=== PATIENT | female | born 1950 ===

== ENCOUNTER 2024-08-19 07:40 | Outpatient (CLI) | payer MEDICARE, SELFPAY ==
--- NOTE | ~2024-08-19 | MR_ITS ---
EXAMINATION: MR foot LT wo con DATE: 08/19/2024 08:28 INDICATION: Left ankle pain and swelling. TECHNIQUE: Magnetic resonance imaging (MRI) of the left foot was performed without intravenous contra st. COMPARISON: None. FINDINGS: Medial ankle ligaments: The superficial and deep components of the deltoid ligament are normal. Lateral ankle ligaments: The anterior and posterior talofibular ligaments, calcaneofibular ligament, and anterior and posterio r tibiofibular ligaments are normal. Tendons: The medial and anterior ankle tendons are normal. The peroneal tendons are normal. There is mild Achi lles tendinopathy. Plantar fascia: Normal. Bones/other: Alignment is normal. No fracture. There is severe osteoarthritis of talonavicular joint and mild oste oarthritis of ankle joint and some of the other midfoot joints. There is moderate osteoarthritis of c alcaneocuboid joint. There is a skin marker at the medial aspect of the ankle. Fluid: There are small ankle and subtalar joint effusions. IMPRESSION: 1. 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 Reviewed, dictated and finalized at location A. MANAGEMENT
== END 2024-08-19 07:41 | disposition home or self-care (01) ==
PROVIDERS: PCP Student in an Organized Health Care Education/Training Program; Visit Provider Student in an Organized Health Care Education/Training Program
DX: M19.072 Primary osteoarthritis, left ankle and foot (principal)
CPT/HCPCS: 73718

== ENCOUNTER 2024-11-05 10:03 | Emergency (ER) | payer MEDICARE, SELFPAY ==
--- OUTSIDE RECORDS SUMMARY | 2024-11-05 10:06 | XMS_ITS | Clinical Summary ---
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 Fish-Derived Products Other (see comment) Medium 11/08 Reaction: vomitng, Reaction: vomitng, Medications albuterol sulfate HFA 108 (90 Base) MCG/ACT inhalerIndication s:Mild intermittent asthma without complication ([facility]),Screeni ng for lipid disorders,Screeni ng for endocrine, metabolic and immunity disorder,Annual physical exam TAKE 2 PUFFS BY MOUTH EVERY 6 HOURS NEEDED FOR WHEEZE OR SHORTNESS OF BREATH 18 g 1 4 Active Active Problems Problem Noted Date Diagnosed Date Regurgitation of food 02/22/2023 Overview (02/22/2023): Added automatically from request for surgery [id number] Dysphagia, cricopharyngeal 02/22/2023 Overview (02/22/2023): Added automatically from request for surgery [id number] Scoliosis 02/03/2017 Overview (10/28/2022): Scoliosis, unspecified scoliosis type, unspecified spinal region Scoliosis, unspecified scoliosis type, unspecified spinal region Hyperlipidemia 09/05/2014 Overview (10/28/2022): Hyperlipidemia Last Assessment & Plan: Stable. Ordering repeat lipid panel Encounters Date Type Department Care Team Description 08/30/2024 Telephone [facility] [address] [phone] Garry Stone, DO Referral 08/22/2024 Telephone [facility] [address] [phone] Garry Stone, DO Radiology Results 08/19/2024 Scan HEALTH INFO SRVCS Scanned, [facility] MRI (SCAN) from Last 3 Months Immunizations Name Administration Dates Next Due Fluzone High Dose - >Age 65 (Prefilled Syringe) 07/30/2022,07/19/2020 [facility]ER[facility] COVID-19 BIVALENT (6-11), MRNA, LNP-S, P F 08/07/2021 MODERNA 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), MRNA, LNP-S, PF, 50 MCG/ 0.25 ML DOSE 11/09/2020,12/08/2019 Tdap (Generic) 09/20/2006 Family History Medical History Relation Comments Heart Disease Father Cancer Mother Relation Status Comments Father Mother Social History Tobacco Use Types Packs/Day Years Used Date Smoking Tobacco: Never Smokeless Tobacco: Never Tobacco Cessation:Counseling Given: Not Answered Alcohol Use Standard Drinks/Week Comments Never 0 (1 standard drink = 0.6 oz pur e alcohol) PHQ-2 Answer Date Recorded Patient Health Questionnaire-2 Score 0 07/21/2024 Comments No Sex and Gender Information Value Date Recorded Sex Assigned at Not on file Legal Sex Female 10:15 AM CDT Gender Identity Not on file Sexual Orientation Not on file Last Filed Vital Signs Vital Sign Reading Time Taken Comments Blood Pressure 128/82 07/21/2024 7:18 AM CDT Pulse 78 07/21/2024 7:18 AM CDT Temperature 36.3 C (97.4 F) 07/21/2024 7:18 AM CDT Respiratory Rate 16 07/21/2024 7:18 AM CDT Oxygen Saturation 98% 07/21/2024 7:18 AM CDT Inhaled Oxygen Concentration - - Weight 46 kg (101 lb 6.4 oz) 07/21/2024 7:18 AM CDT Height 154.9 cm (5' 1 ) 07/21/2024 7:18 AM CDT Body Mass Index 19.16 07/21/2024 7:18 AM CDT Plan of Treatment Health Maintenance Due Date Last Done Comments Colorectal Cancer Screening Colonoscopy (10 Years) 1950 Pneumococcal Vaccine: 65+ Years (1 of 2 - PCV) 02/11/1956 Annual Medicare Wellness Visit 02/11/2017 Mammogram Screening 01/01/2023 01/01/2021, 4 PHQ-2 (Physician [place]) 09/20/2024 07/21/2024 COVID-19 Vaccine ( season) 2025 07/30/2022, 08/07/2021, 11/09/2020, Additional history exists Postponed from 05/21/2024 (Patient Refused) DTaP, Tdap and Td Vaccines (2 - Td or Tdap) 07/21/2025 09/20/2006 Postponed from 09/20/2016 (Patient Refused) Dexa Scan (General) 07/21/2025 01/01/2021, 1 Postponed from 01/01/2023 (Patient Refused) Influenza Adult (#1) 2025 07/30/2022, 07/19/20 20 Postponed from 06/20/2024 (Patient Refused) PHQ-2 (Physician [place]) 07/21/2025 07/21/2024 RSV Immunization or 60+ Years (1 - Risk 60-74 years 1-dose series) 07/21/2025 Postponed fro m 2012 (Patient Refused) Zoster Vaccines (1 of 2) 07/21/2025 Pos tponed from 02/11/2002 (Patient Refused) Hepatitis C Completed 10/28/2022 Meningococcal B Vaccine Aged Out No l onger eligible based on patient's age to complete this topic Meningococcal Vaccine Aged Out No sara azucena eligible based on patient's age to complete this topic RSV Immunizations Under 20 Months Aged Out No longer eligible based on patient's age to complete this topic Procedures Procedure Name Priority Date/Time Associated Diagnosis Comments MRI GENERIC 08/19/2024 HEPATITIS C ANTIBODY Routine 10/28/2022 1:02 PM [facility] Screening for lipid disorders Screening for endocrine, metabolic and immunity disorder Need for hepatitis C screening test Annual physical exam from Last 3 Months or Most Recently Relevant to Health Maintenance Results * MRI GENERIC (08/19/2024) Anatomical Region Laterality Modality Other 08/19/2024 [facility] Scanned SCANNING Final Resu lt * HEPATITIS C ANTIBODY (10/28/2022 1:02 PM [facility]) HEPATITIS C AB NON-REACTI VE NON-REACT CHLOE 10/28/2022 6:17 PM CHEF DE PARTIE [facility] Comment: ANTIBODIES TO HCV NOT DETECTED. DOES NOT EXCLUDE THE POSSIBILITY OF EXPOSURE TO HCV. 10/28/2022 1:02 PM CHEF DE PARTIE Garry Stone DO LABORATORY Final Re sult [facility] [address] [place] [address], [id number] from Last 3 Months or Most Recently Relevant to Health Maintenance Insurance [employer] Care Teams Single Stroke Preformer Relationship Specialty Start Date End Date Garry Stone DO [facility] [place] [address] PCP - General FAMILY PRACTICE 10/28/22
--- OUTSIDE RECORDS SUMMARY | 2024-11-05 10:06 | XMS_ITS | Continuity of Care Document ---
Author Organization [facility] Address [address] [place] [id number] Phone Care Team Providers Care Field Sales Specialist Name Role Phone Haroon Cotton Unavailable Unavailable Allergies, Adverse Reactions, Alerts Substance Reaction Status Criticality BEE STING KIT Active No Information Medications Medication Instructions Dosage Effective Dates (start - stop) Status Comments amoxicillin 875 mg tablet take 1 tablet by oral route every 12 hours 875 MG - Active Procedures Procedure Date OFFICE/OUTPATIENT VISIT, [facility] Advance Directives Directive Yes / No Effective Date File Name No Information Encounters Encounter Description Practice Location Reason(s) For Visit Diagnoses Date Provider Providers Copied on Encounter [facility], [address] [place] [address], [facility], tel:[phone] *[facility] No Information Yury Martinezeem. [address] [place] [address], [facility], . tel:[phone] OFFICE/OUTPAT IENT VISIT, [facility], [address] [place] [address], [address] [place] [address] tel:[phone] *[facility] Ear irrigation (chief complaint) Body mass index (BMI) 21.0-21.9, adultAcute suppurative otitis media of both ears without spontaneous rupture of tympanic membranes, recurrence not specified Alvin Romero. [address] [place], [place], [facility], . tel:[phone] Family History Family Member Type Diagnosis Age At Onset Father Problem (finding) hypertension Payers Payer name Insurance type Covered constitution party ID Authoriza tion(s) No Information Social History Type Description Quantity Date Captured Comments Sex Female Smoking Status No Information Chief Complaint And Reason For Visit No Information Reason For Referral Reason For Referral No Information Plan Of Treatment Date Type Action Status Goal Dietary management education , guidance, and counseling completed History Of Present Illness Encounter Date Complaint History Of Prese nt Illness Ear irrigation The symptoms beg an 1 month ago and generally lasts 1 Month. The symptoms are reported as being severe. The symptoms occur constantly. Pt has wax build up in her ears. Pt does use ear candles to clean ears with. Functional Status Date Functional Assessmen t No Information Instructions Date Instruction Additional Infor mation amoxicillin, follow up after treatment Related to Acute suppurative otitis media of both ears without spontaneous rupture of tympanic membranes, recurrence not specified Dietary management e ducation, guidance, and counseling Related to Body mass index (BMI) 21.0-21.9, adult Assessments Type Assessment Date No Information Patient Care Teams Name Effective Dates (start - stop) Status Members No Information
--- OUTSIDE RECORDS SUMMARY | 2024-11-05 10:06 | XMS_ITS | Referral Summary ---
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 Medications EPINEPHrine (EPIPEN) 0.3 mg/0.3 mL injection syringeIndicati ons:Anaphylaxis Inject 0.3 mL (0.3 mg total) into the shoulder, thigh, or buttocks as needed for anaphylaxis. 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
--- OUTSIDE RECORDS SUMMARY | 2024-11-05 10:06 | XMS_ITS | Clinical Summary ---
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 Medications albuterol sulfate 90 mcg/Actuation inhaler Take 2 Puffs by inhalation every 6 hours as needed for Shortness of Breath. 8.5 Gram 1 2 Active Active Problems Problem Noted Date Diagnosed Date Hyperlipidemia 08/22/2019 Assessment & Plan (12/16/2020 12:40 PM CDT): Edith. Ordering repeat lipid panel Assessment & Plan (07/19/2020 10:19 AM CDT): Edith. ASCVD score 4.5% (low) - recommend healthy diet and exercise. 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 Written Script for Epi pen Scoliosis 02/03/2017 Overview (07/19/2020): Scoliosis, unspecified scoliosis type, unspecified spinal region Immunizations Immunization Administration Dates Next Due (ADACEL/BOOSTRIX)(10 YR UP) TDAP VACCINE, 0.5ML, IM 09/20/2006 INFLUENZA VACCINE HIGH DOSE QUADRIVALENT 65 YR U P PF IM 07/19/2020 Family History Medical History Relation Name Comments Heart Disease Father Alfred Oden Cancer Maternal Grandmother Ayla Lanier Cancer Mother Aura Oden cervical cancer Heart Disease Paternal Grandfather jayden Oden Heart attack and passed Relation Name Status Comments Father Alfred Oden Maternal Grandfather Maternal Grandmother Ayla Lanier Mother Aura Oden Alive Paternal Grandfather jayden Oden Paternal Grandmother Social History Tobacco Use Types Packs/Day Years Used Date Smoking Tobacco: Never Smokeless Tobacco: Never Alcohol Use Standard Drinks/Week Comments Never 0 (1 standard drink = 0.6 oz pur e alcohol) Financial Resource Strain Answer Date R ecorded How hard is it for you to pa y for the very basics like food, housing, medical care, and heating? Not hard at all 10/29/2020 Food Insecurity Answer Date Recorded In the past 12 months, have you worried that your food would run out before you had money to buy more? Never true 12/15/2020 In the past 12 months, did y ou run out of food and didn't have money to buy more? Never true 12/15/2020 Transportation Needs Answer Date Record ed In the past 12 months, has l ack of transportation kept you from medical appointments or from getting medications? 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 Gender Identity Not on file Sexual Orientation Not on file Last Filed Vital Signs Vital Sign Reading Time Taken Comments Blood Pressure 122/60 12/16/2020 9:41 AM CDT Pulse 67 12/16/2020 9:41 AM CDT Temperature 36.3 C (97.4 F) 07/19/2020 9:58 AM CDT Respiratory Rate 20 02/28/2020 1:40 PM CDT Oxygen Saturation 99% 12/16/2020 9:41 AM CDT Inhaled Oxygen Concentration - - Weight 49.9 kg (110 lb) 12/16/2020 9:41 AM CDT Height 157.5 cm (5' 2 ) 12/16/2020 9:41 AM CDT Body Mass Index 20.12 12/16/2020 9:41 AM CDT Plan of Treatment Health Maintenance Due Date Last Done Comments COLORECTAL SCREENING 02/11/1997 FIT/FOBT Q 1 year 02/11/1997 Flex Sig/CT Colonography Q 5 years 02/11/1997 PNEUMOCOCCAL VACCINE 65+ YEA RS (1 of 1 - PCV) 02/11/2002 ZOSTER VACCINE (1 of 2) 02/11/2002 DTAP/TDAP/TD VACCINES (2 - Td or Tdap) 09/20/2016 BREAST CANCER SCREENING 01/01/2022 01/01/2021, 08/30 Colorectal Cancer Screening 10/04/2022 FIT-DNA Q 3 years 10/04/2022 10/04/2019 INFLUENZA VACCINE (#1) 2024 07/30/2022, 2019 RSV VACCINE (60+ or ) (1 - 1-dose 75+ series) 02/11/2027 OSTEOPOROSIS SCREENING Completed 01/01/2021 Medical Devices Implanted Type Area Electronic Engineering Draftsperson Device Identifier Shelf Expiration Date Model / Serial / Lot Hazard Mitigation Officer Endoclip Iii 5mm W/Cliplogic [id number] - [id number] Implanted:Qty: 1 on 02/28/2020 by Carol Cabrera DO at [facility] N/A: Abdomen [employer] - COVIDIEN 09/19/2022 [id number] / / [id number] Procedures Procedure Name Priority Date/Time Associated Diagnosis Comments MAMMO 3D KAYLA SCREEN BILAT W OR WO CAD Routine 01/01/2021 2:28 PM CDT Screening mammogram, encounter for XR DEXA BONE DENSITY AXIAL 1 OR MORE SITES Routine 01/01/2021 2:19 PM CDT Screening for osteoporosis Post-menopausal COLON CANCER SCREEN, STOOL DNA Routine 10/04/2019 3:24 PM WASTE COTTON CLEANER Screening for colon cancer from Last 3 Months or Most Recently Relevant to Health Maintenance Results * MAMMO SCRN BILAT 3D KAYLA W OR WO CAD (01/01/2021 2:28 PM CDT) Anatomical Region Laterality Modality Breast Bilateral Mammography 01/01/2021 2:28 PM CDT Addenda Addendum by April Guerrero DO on 01/02/2021 3:54 PM CDT ADDENDUM: The patient's prior mammogram performed on 08/30/2014 has been received and reviewed. FINDINGS: The parenchymal pattern of the breasts is unchanged from the previous studies with no concerning developing dominant masses, microcalcifications or focal areas of architectural distortion. IMPRESSION: 1. No concerning developing abnormality identified. OVERALL FINAL ASSESSMENT: BI-RADS CATEGORY 1 - Negative RECOMMENDATIONS: 1. Recommend annual mammography. [facility] 01/01/2021 3:21 PM CDT IMPRESSION: This study is incomplete. Outside films are needed to assess stability of the parenchymal pattern. Once received, an addendum to this report will be made. OVERALL FINAL ASSESSMENT: BI-RADS CATEGORY 0 - Incomplete: Needs prior mammograms for comparison. DICTATION LOCATION: [facility] Narrative 01/01/2021 3:21 PM CDT BILATERAL SCREENING DIGITAL MAMMOGRAM WITH 3D TOMOSYNTHESIS AND CAD DATE: 01/01/2021 2:28 PM HISTORY: Routine screening. The patient indicates receiving her second Covid 19 vaccination in the left arm on 12/07/2020. TECHNIQUE: Full-field digital craniocaudal and mediolateral oblique projections of both breasts were obtained. Low-dose full-field digital breast tomosynthesis examination was performed with 2D and 3D acquisitions. Examination is read in conjunction with computer aided detection. COMPARISON: None currently available. The patient indicates her prior films were obtained at [facility]. She is identified with these form for retrieval of these images. BREAST COMPOSITION: Scattered fibroglandular densities. FINDINGS: This study is incomplete due to lack of prior films for comparison. Prior films have been requested and once received, an addendum will be made to this report. CAD is utilized. Procedure Note April Guerrero DO - 01/01/2021 BILATERAL SCREENING DIGITAL MAMMOGRAM WITH 3D TOMOSYNTHESIS AND CAD DATE: 01/01/2021 2:28 PM HISTORY: Routine screening. The patient indicates receiving her second Covid 19 vaccination in the left arm on 12/07/2020. TECHNIQUE: Full-field digital craniocaudal and mediolateral oblique projections of both breasts were obtained. Low-dose full-field digital breast tomosynthesis examination was performed with 2D and 3D acquisitions. Examination is read in conjunction with computer aided detection. COMPARISON: None currently available. The patient indicates her prior films were obtained at [facility]. She is identified with these form for retrieval of these images. BREAST COMPOSITION: Scattered fibroglandular densities. FINDINGS: This study is incomplete due to lack of prior films for comparison. Prior films have been requested and once received, an addendum will be made to this report. CAD is utilized. IMPRESSION: This study is incomplete. Outside films are needed to assess stability of the parenchymal pattern. Once received, an addendum to this report will be made. OVERALL FINAL ASSESSMENT: BI-RADS CATEGORY 0 - Incomplete: Needs prior mammograms for comparison. DICTATION LOCATION: [facility] us Pati Roasles MD MAMMO ORDERABLES Edited Result - Final * XR DEXA BONE DENSITY AXIAL 1 OR MORE SITES (01/01/2021 2:19 PM CDT) Anatomical Region Laterality Modality Computed Radiogr aphy 01/01/2021 2:1 9 PM CDT Narrative 01/01/2021 2:32 PM CDT XR DEXA BONE DENSITY AXIAL 1 OR MORE SITES DATE: 01/01/2021 2:19 PM HISTORY: 70 years old Female with post menopausal symptoms. PROCEDURE: Planar images of the lumbar spine and hip(s) using a [employer] DEXA scanner for bone mineral density determination (BMD). FINDINGS: Lumbar Spine (L1-L4) 0.753 gm/cm2, T-score: -3.6 Left femoral neck 0.642 gm/cm2, T-score: -2.8 Right femoral neck 0.636 gm/cm2, T-score: -2.9 Comments: None IMPRESSION Osteoporotic bone mineral density. DEFINITIONS: Normal: T-score above -1.0 Osteopenia T-score less than -1.0 and above -2.5 Osteoporosis: T-score < -2.5 FRAX FRACTURE RISK ASSESSMENT: Risk factors: History of fracture. 10 Year Probability Of Fracture -Major Osteoporotic: 24.0% -Hip: 7.7% -Comparison population: [place], A major osteoporotic fracture is defined as a fracture of the spine, forearm, hip or shoulder. FOLLOW-UP RECOMMENDATIONS: Patients without high risk factors for osteoporosis: T-score -1.0 to -1.5 - Consider repeat BMD in 5-10 years T-score -1.5 to -2.0 - Consider repeat BMD in 3-5 years T-score -2.0 to - 2.5 - Consider repeat BMD every 2 years Patients on treatment for osteoporosis: 1-2 years after initiation of treatment and every 2 years [address] Yuan Powell DO DICTATION LOCATION: Location 1 - [facility] Procedure Note Yuan Powell DO - 01/01/2021 XR DEXA BONE DENSITY AXIAL 1 OR MORE SITES DATE: 01/01/2021 2:19 PM HISTORY: 70 years old Female with post menopausal symptoms. PROCEDURE: Planar images of the lumbar spine and hip(s) using a [employer] DEXA scanner for bone mineral density determination (BMD). FINDINGS: Lumbar Spine (L1-L4) 0.753 gm/cm2, T-score: -3.6 Left femoral neck 0.642 gm/cm2, T-score: -2.8 Right femoral neck 0.636 gm/cm2, T-score: -2.9 Comments: None IMPRESSION Osteoporotic bone mineral density. DEFINITIONS: Normal: T-score above -1.0 Osteopenia T-score less than -1.0 and above -2.5 Osteoporosis: T-score < -2.5 FRAX FRACTURE RISK ASSESSMENT: Risk factors: History of fracture. 10 Year Probability Of Fracture -Major Osteoporotic: 24.0% -Hip: 7.7% -Comparison population: [place], A major osteoporotic fracture is defined as a fracture of the spine, forearm, hip or shoulder. FOLLOW-UP RECOMMENDATIONS: Patients without high risk factors for osteoporosis: T-score -1.0 to -1.5 - Consider repeat BMD in 5-10 years T-score -1.5 to -2.0 - Consider repeat BMD in 3-5 years T-score -2.0 to - 2.5 - Consider repeat BMD every 2 years Patients on treatment for osteoporosis: 1-2 years after initiation of treatment and every 2 years thereafter [address] Yuna Powell DO DICTATION LOCATION: Location 1 - [facility] Pati Rosales MD DIAGNOSTIC IMAGING ORDERABLES Final Result * COLON CANCER SCREEN, STOOL DNA (10/04/2019 3:24 PM WASTE COTTON CLEANER) COLOGUARD RESULT Negative Not Applicable [facility] Comment: A negative result indicates a low likelihood that a colorectal cancer (CRC) or an advanced adenoma (adenomatous polyps with more advanced pre-malignant features) is present. The chance that a person with a negative Cologuard test has a colorectal cancer is less than 1 in 1500 (negative predictive value >99.9%) or has an advanced adenoma is less than 5.3% (negative predictive value 94.7%). These data are based on a prospective cross-sectional screening study of 10,000 individuals at average risk for colorectal cancer who were screened with both Cologuard and colonoscopy. (Anibal Diaz. et al, N Engl J Med 2014;370(14):9231-7450) COLOGUARD RE-SCREENING RECOMMENDATION: Periodic routine colorectal cancer screening is an important part of preventive healthcare for asymptomatic persons at average risk for colorectal cancer. Following a negative Cologuard result, the [place] Cancer Society and U.S. Multi-Society Task Force screening guidelines recommend a Cologuard re-screening interval of 3 years. References: [place] Cancer Society (ACS). Colorectal cancer prevention and early detection. [place], [place]: [place] Cancer Society; [updated 2015Jan 11]. https://www.cancer.org/cancer/jvdyo-kqkicy-ddrwud/eqhwkhbuo-gwdpbicfv-vpdnhov/ac s-rec ommendations.html. Accessed May 20, 2018; Pan JONES, Ashley ARDON, Abi CORTEZ, Colorectal Cancer Screening: Recommendations for Physicians and Patients from the U.S. Multi-Society Task Force on Colorectal Cancer Screening, Am J Gastroenterology 2017; 112:0794-1581. Test Type: Composite algorithmic analysis of stool DNA-biomarkers with hemoglobin immunoassay. Quantitative values of individual biomarkers are not reportable and are not associated with individual biomarker result reference ranges. Precautions and Limitations: Cologuard is intended for colorectal cancer screening of adults of either sex, 50 years or older, who are at typical average-risk for colorectal cancer. A negative Cologuard test result does not guarantee the absence of colorectal cancer or advanced adenoma (pre-cancer). Patients with a negative Cologuard test result should be advised to continue participating in a colorectal cancer screening program. Cologuard may produce a positive result, even though a colonoscopy may not find colorectal cancer or precancerous polyps. The performance of Cologuard has been established in a cross sectional study (i.e., single point in time). Performance has not been evaluated in adults who have been previously tested with Cologuard or in patients less than 50 years of age. Cologuard has been approved for use by the U.S. FDA. Cologuard performance data in a 10,000 patient pivotal study using colonoscopy as the reference method can be accessed at the following location: www.[employer]/results. Additional description of the Cologuard test process, warnings and precautions can be found at www.cologuardtest.com. Rx Only. Stool STOOL SPECIMEN / Unknown 10/04/2019 3:24 PM WASTE COTTON CLEANER 10/05/2019 2:24 PM WASTE COTTON CLEANER us Jon Terrell MD BODY FLUIDS AND STOOLS Final R esult [employer] [facility] # [id number] [facility] [address] [facility], [address] [place] [address] from Last 3 Months or Most Recently Relevant to Health Maintenance Insurance MEDICARE PART A AND B BCBS SUPP Advance Directives For more information, please contact: [phone] * Full Code (Latest Code Status on File) Date Activated Date Inactivated Comments 02/28/2020 8:55 AM 02/28/2020 5:09 PM * Full Code Date Activated Date Inactivated Comments 02/28/2020 8:04 AM 02/28/2020 8:55 AM * Full Code Date Activated Date Inactivated Comments 02/07/2020 9:15 AM 02/07/2020 2:27 PM
--- OUTSIDE RECORDS SUMMARY | 2024-11-05 10:06 | XMS_ITS | Clinical Summary ---
Author Organization [facility] Address [address] [place] [address] Care Team Providers Care Rustic Fence Builder Name Role Phone Unavailable Primary Care Provider [...] Immunization Administration Dates Next Due Tdap 09/20/2006 Surgical History Surgery Date Site/Laterality Comments OTHER SURGICAL HISTORY right arm fx repair TUBAL LIGATION Bilateral tubal ligation OTHER SURGICAL HISTORY abdominal scar tissue removed Family History Medical History Relation Name Comments Coronary artery disease Father Robbi nary artery disease; Esophageal cancer Father Cancer, es ophageal; Cause of : Cancer, esophageal Heart attack Father Myocardial infa rction; Tuberculosis Maternal Grandfather Tubercu losis; Glaucoma Mother Glaucoma; Uterine cancer Mother Cancer, uteri ne; Relation Name Status Comments Father Maternal Grandfather Mother Social History Tobacco Use Types Packs/Day Years Used Date Smoking Tobacco: Never Alcohol Use Standard Drinks/Week Comments No 0 (1 standard drink = 0.6 oz pur e alcohol) Comments No Sex and Gender Information Value Date Recorded Sex Assigned at Not on file Legal Sex Female 2:32 PM LEGAL ADVISER Gender Identity Not on file Sexual Orientation Not on file Obstetrics History Last Filed Vital Signs Vital Sign Reading [...] of Treatment Not on file Insurance MEDICARE [facility]
[2024-11-05 10:11] VITALS: BP 128/59; PULSE 82; RESP 18; TEMP 36.6; O2SAT 100
--- OUTSIDE RECORDS SUMMARY | 2024-11-05 10:27 | XMS_ITS | Clinical Summary ---
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 Gender Identity Not on file Sexual Orientation [...] Completed 01/01/2021 Medical Devices Implanted Type Area Hand Zipper Trimmer Device Identifier Shelf Expiration Date Model / Serial / Lot Cargo Vessel Stewardess Endoclip Iii 5mm W/Cliplogic [id number] - [id number] Implanted:Qty: 1 on 02/28/2020 by Carol Cabrera DO at [facility] N/A: Abdomen [employer] - COVIDIEN 09/19/2022 [id number] / / [id number] Procedures Procedure Name Priority Date/Time Associated Diagnosis Comments MAMMO 3D KAYLA SCREEN BILAT W OR WO CAD Routine 01/01/2021 2:28 PM CDT Screening mammogram, encounter for XR DEXA BONE DENSITY AXIAL 1 OR MORE SITES Routine 01/01/2021 2:19 PM CDT Screening for osteoporosis Post-menopausal COLON CANCER SCREEN, STOOL DNA Routine 10/04/2019 3:24 PM ARBORICULTURE TEACHER Screening for colon cancer from Last 3 [...] RECOMMENDATIONS: 1. Recommend annual mammography. [facility] 01/01/2021 3:21 PM CDT IMPRESSION: This study is incomplete. Outside films are needed to assess stability of the parenchymal pattern. Once received, an addendum to this report will be made. OVERALL FINAL ASSESSMENT: BI-RADS CATEGORY 0 - Incomplete: Needs prior mammograms for comparison. DICTATION LOCATION: [facility] Narrative 01/01/2021 3:21 PM CDT BILATERAL [...] indicates her prior films were obtained at [facility]. She is identified with these form [...] indicates her prior films were obtained at [facility]. She is identified with these form [...] Needs prior mammograms for comparison. DICTATION LOCATION: [facility] us Pati Rosales MD MAMMO ORDERABLES Edited Result - Final [...] the lumbar spine and hip(s) using a [employer] DEXA scanner for bone mineral density determination [...] Powell DO DICTATION LOCATION: Location 1 - [facility] Procedure Note Yuan Powell DO - 01/01/2021 XR DEXA BONE DENSITY AXIAL 1 OR MORE SITES DATE: 01/01/2021 2:19 PM HISTORY: 70 years old Female with post menopausal symptoms. PROCEDURE: Planar images of the lumbar spine and hip(s) using a [employer] DEXA scanner for bone mineral density determination [...] Powell DO DICTATION LOCATION: Location 1 - [facility] Pati Rosales MD DIAGNOSTIC IMAGING ORDERABLES Final Result * COLON CANCER SCREEN, STOOL DNA (10/04/2019 3:24 PM ARBORICULTURE TEACHER) COLOGUARD RESULT Negative Not Applicable [facility] Comment: A negative result indicates a [...] Diaz. et al, N Engl J Med 2014;370(14):1042-0347) COLOGUARD RE-SCREENING RECOMMENDATION: Periodic routine colorectal cancer screening is an important part of preventive healthcare for asymptomatic persons at average risk for colorectal cancer. Following a negative Cologuard result, the [place] Cancer Society and U.S. Multi-Society Task Force screening guidelines recommend a Cologuard re-screening interval of 3 years. References: [place] Cancer Society (ACS). Colorectal cancer prevention and early detection. [place], [place]: [place] Cancer Society; [updated 2015Jan 11]. https://www.cancer.org/cancer/ceitd-jxohzp-qgqzxf/utwuxxqmk-aurqgsonm-xxclltd/ac s-rec ommendations.html. Accessed May 20, 2018; Pan JONES, Ashley ARDON, Abi CORTEZ, Colorectal Cancer Screening: Recommendations for Physicians and Patients from the U.S. Multi-Society Task Force on Colorectal Cancer Screening, Am J Gastroenterology 2017; 112:5390-1362. Test Type: Composite algorithmic analysis of stool [...] can be accessed at the following location: www.[employer]/results. Additional description of the Cologuard test process, warnings and precautions can be found at www.cologuardtest.com. Rx Only. Stool STOOL SPECIMEN / Unknown 10/04/2019 3:24 PM ARBORICULTURE TEACHER 10/05/2019 2:24 PM ARBORICULTURE TEACHER us Jon Terrell MD BODY FLUIDS AND STOOLS Final R esult [employer] [facility] # [id number] [facility] [address] [facility], [address] [place] [address] from Last 3 Months or Most Recently Relevant to Health Maintenance Insurance MEDICARE PART A AND B BCBS SUPP Advance Directives For more information, please contact: [phone] * Full Code (Latest Code Status on File) Date Activated Date Inactivated Comments 02/28/2020 8:55 AM 02/28/2020 5:09 PM * Full Code Date Activated Date Inactivated Comments 02/28/2020 8:04 AM 02/28/2020 8:55 AM * Full Code Date Activated Date Inactivated Comments 02/07/2020 9:15 AM 02/07/2020 2:27 PM
--- OUTSIDE RECORDS SUMMARY | 2024-11-05 10:27 | XMS_ITS | Referral Summary ---
Author Organization [facility] Address [address] [place] [address] Care Team Providers Care Dryerman/Woman Name Role Phone Unavailable Primary Care Provider [...] on file Legal Sex Female 2:32 PM RN BURN Gender Identity Not on file Sexual Orientation [...] of Treatment Not on file Insurance MEDICARE [facility]
--- OUTSIDE RECORDS SUMMARY | 2024-11-05 10:27 | XMS_ITS | Continuity of Care Document ---
Author Organization [facility] Address [address] [place] [address] Phone Care Team Providers Care Whizzer Operator Name Role Phone Haroon Cotton Unavailable Unavailable Allergies, Adverse Reactions, Alerts Substance Reaction Status Criticality BEE STING KIT Active No Information Medications Medication Instructions Dosage Effective Dates (start - stop) Status Comments amoxicillin 875 mg tablet take 1 tablet by oral route every 12 hours 875 MG - Active Procedures Procedure Date OFFICE/OUTPATIENT VISIT, [facility] Advance Directives Directive Yes / No Effective Date File Name No Information Encounters Encounter Description Practice Location Reason(s) For Visit Diagnoses Date Provider Providers Copied on Encounter [facility], [address] [place] [address], [facility], tel:[phone] *[facility] No Information Yury Martinezeem. [address] [place] [address], [facility], . tel:[phone] OFFICE/OUTPAT IENT VISIT, [facility], [address] [place] [address], [address] [place] [address] tel:[phone] *[facility] Ear irrigation (chief complaint) Body mass index (BMI) 21.0-21.9, adultAcute suppurative otitis media of both ears without spontaneous rupture of tympanic membranes, recurrence not specified Alvin Romero. [address] [place], [place], [facility], . tel:[phone] Family History Family Member Type Diagnosis Age At Onset Father Problem (finding) hypertension Payers Payer name Insurance type Covered libertarian ID Authoriza tion(s) No Information Social History [...]
--- OUTSIDE RECORDS SUMMARY | 2024-11-05 10:27 | XMS_ITS | Clinical Summary ---
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 Fish-Derived Products Other (see comment) Medium 11/08 Reaction: vomitng, Reaction: vomitng, Medications albuterol sulfate HFA 108 (90 Base) MCG/ACT inhalerIndication s:Mild intermittent asthma without complication ([facility]),Screeni ng for lipid disorders,Screeni ng for endocrine, metabolic and immunity disorder,Annual physical exam TAKE 2 PUFFS BY MOUTH EVERY 6 HOURS NEEDED FOR WHEEZE OR SHORTNESS OF BREATH 18 g 1 4 Active Active Problems Problem Noted Date Diagnosed Date Regurgitation of food 02/22/2023 Overview (02/22/2023): Added automatically from request for surgery [id number] Dysphagia, cricopharyngeal 02/22/2023 Overview (02/22/2023): Added automatically from request for surgery [id number] Scoliosis 02/03/2017 Overview (10/28/2022): Scoliosis, unspecified scoliosis type, unspecified spinal region Scoliosis, unspecified scoliosis type, unspecified spinal region Hyperlipidemia 09/05/2014 Overview (10/28/2022): Hyperlipidemia Last Assessment & Plan: Stable. Ordering repeat lipid panel Encounters Date Type Department Care Team Description 08/30/2024 Telephone [facility] Internal [address] [id number] Garry Stone, DO Referral 08/22/2024 Telephone [facility] Internal [address] [address] Garry Stone, DO Radiology Results 08/19/2024 Scan HEALTH INFO SRVCS Scanned, [facility] MRI (SCAN) from Last 3 Months Immunizations Name Administration Dates Next Due Fluzone High Dose - >Age 65 (Prefilled Syringe) 07/30/2022,07/19/2020 MODERNA COVID-19 BIVALENT (6-11), MRNA, LNP-S, P F 08/07/2021 MODERNA COVID-19 (QUARTZ ORIENTATOR KATIE RYDER), MRNA, LNP-S, PF, 50 MCG/ [...] Mammogram Screening 01/01/2023 01/01/2021, 4 PHQ-2 (Physician Mobile) 09/20/2024 07/21/2024 COVID-19 Vaccine ( season) 2025 07/30/2022, 08/07/2021, 11/09/2020, Additional history exists Postponed from 05/21/2024 (Patient Refused) DTaP, Tdap and Td Vaccines (2 - Td or Tdap) 07/21/2025 09/20/2006 Postponed from 09/20/2016 (Patient Refused) Dexa Scan (General) 07/21/2025 01/01/2021, 1 Postponed from 01/01/2023 (Patient Refused) Influenza Adult (#1) 2025 07/30/2022, 07/19/20 20 Postponed from 06/20/2024 (Patient Refused) PHQ-2 (Physician Mobile) 07/21/2025 07/21/2024 RSV Immunization or 60+ Years [...] HEPATITIS C ANTIBODY Routine 10/28/2022 1:02 PM FLIGHT TEST MECHANIC Screening for lipid disorders Screening for endocrine, metabolic and immunity disorder Need for hepatitis C screening test Annual physical exam from Last 3 Months or Most Recently Relevant to Health Maintenance Results * MRI GENERIC (08/19/2024) Anatomical Region Laterality Modality Other 08/19/2024 [facility] Scanned SCANNING Final Resu lt * HEPATITIS C ANTIBODY (10/28/2022 1:02 PM FLIGHT TEST MECHANIC) HEPATITIS C AB NON-REACTI VE NON-REACT CHLOE 10/28/2022 6:17 PM FLIGHT TEST MECHANIC [facility] Comment: ANTIBODIES TO HCV NOT DETECTED. DOES NOT EXCLUDE THE POSSIBILITY OF EXPOSURE TO HCV. 10/28/2022 1:02 PM FLIGHT TEST MECHANIC Garry Stone DO LABORATORY Final Re sult [facility] [address] [place] [address], [id number] from Last 3 Months or Most Recently Relevant to Health Maintenance Insurance [employer] Care Teams Accounts Payable Accountant Relationship Specialty Start Date End Date Garry Stone DO [address] [place] [address] PCP - General FAMILY PRACTICE 10/28/22
--- OUTSIDE RECORDS SUMMARY | 2024-11-05 10:27 | XMS_ITS | Clinical Summary ---
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
--- NOTE | 2024-11-05 11:15 | ED.URI ---
HPI - URI/Sore Throat General Chief Complaint: Upper Respiratory Infection Stated Complaint: cough Time Seen by Provider: 11/05/24 10:08 Source: patient Mode of arrival: ambulatory Limitations: no limitations History of Present Illness HPI Narrative: 74-year-old female presents to [facility] with complaints of 10 day history of nonproductive cough, headache, sinus pressure and nasal congestion. Patient reports that her cough has been improving. Patient reports that she also noticed scabbed area to her outer left nare. Patient has been taking [id number] aspirin, Tylenol, cough drops and nasal sprays with little relief. Patient's significant other currently has similar symptoms. Patient is a nonsmoker. Patient denies recent travel. MD elicited complaint: rhinorrhea and nasal congestion Onset (ago): day(s) (10) Able to tolerate fluids by mouth: Yes Context: sick contacts Treatments prior to arrival: acetaminophen, ibuprofen and aspirin Related Data Home Medications ?Medication ?Instructions ?Recorded ?Confirmed ?Last Taken ?Type albuterol sulfate 90 mcg/actuation inhalation 11/05/24 Unknown History aerosol inhaler Allergies Allergy/AdvReac Type Severity Reaction Status Date / Time honey Allergy Mild Swelling Verified 11/05/24 10:59 shellfish derived AdvReac Mild Vomiting Verified 11/05/24 10:59 Review of Systems Constitutional: Constitutional: Denies fatigue, Denies fever(s) and Denies weakness ENT: Denies dizziness, Denies epistaxis, Reports nasal congestion and Denies sore throat Comments: scabbed area to outer left nare Cardiovascular: Cardiovascular: Denies chest pain Respiratory: Respiratory: Reports cough, Denies dyspnea and Denies wheezing Gastrointestinal: Gastrointestinal: Denies diarrhea, Denies nausea and Denies vomiting Musculoskeletal: Musculoskeletal: Denies arthralgias and Denies joint swelling Integumentary/Breasts: Skin/Breast: Denies rash Neurologic: Denies dizziness, Denies syncope and Denies headache(s) PMFSH Comments At time of signature, I agree with nursing past medical, surgical, social and family history. There is no relevant family history pertinent to the presenting complaint. Exam Const: General: healthy appearing and no acute distress Nutritional Appearance: well nourished Orientation/consciousness: patient oriented x3 Limitations: no limitations HENMT: Head: normal to inspection Ears: external ears normal and TM's normal bilaterally Face and sinus: sinus tenderness frontal Mouth: Yes lip normal and Yes moist mucous membranes Throat: posterior oropharynx normal and uvula midline Other: Moderate bilateral nasal congestion noted. There is a scabbed area noted to outer left nare. No purulent drainage, bleeding or bruising noted Eyes: Conjunctivae: conjunctivae normal Neck: Neck: normal visual inspection Resp: Effort & Inspection: normal respiratory effort Auscultation: clear to auscultation bilaterally, no crackles, no rales, no rhonchi and no wheezes Cardio: Rate: regular rate Rhythm: regular rhythm Heart sounds: no murmurs Skin: General skin exam: normal color Rashes: no rashes Neuro: General: patient oriented x3 and moves all extremities Speech: normal speech Gait exam (Neuro): Normal gait present Psych: Mental Status: mental status grossly normal Affect: normal affect Attitude: cooperative Course Course Level of Care: Express Care Visit Vital Signs Vital signs: Vital Signs Temperature 36.6 C 11/05/24 10:11 Pulse Rate 82 11/05/24 10:11 Respiratory Rate 18 11/05/24 10:11 Blood Pressure 128/59 L 11/05/24 10:11 Pulse Oximetry 100 11/05/24 10:11 Oxygen Delivery Room Air 11/05/24 10:11 Temperature 36.6 C 11/05/24 10:11 Pulse Rate 82 11/05/24 10:11 Respiratory Rate 18 11/05/24 10:11 Blood Pressure 128/59 L 11/05/24 10:11 Pulse Oximetry 100 11/05/24 10:11 Oxygen Delivery Room Air 11/05/24 10:11 MDM - URI/Sore Throat MDM Narrative Medical decision making narrative: Due to symptoms and presentation, patient will be treated for sinusitis. Patient agrees to use ointment to area on her outer nose. Patient agrees to follow-up with primary care provider if symptoms not improved Differential Diagnosis Differential diagnosis: Likely otitis media, viral infection and bronchitis Critical Care Time Critical Care Time Critical Care Time: No Discharge Plan Discharge Clinical Impression: Sinusitis Qualifiers: Sinusitis location: frontal Chronicity: acute Recurrence: non-recurrent Qualified Code(s): J01.10 - Acute frontal sinusitis, unspecified Patient Disposition: Home, Self-Care Condition: Stable Instructions: Antibiotic Form, Sinusitis (ED) Additional Instructions: Rest Increase fluids Use ointment to scabbed area on nose Take antibiotic as prescribed Take Flonase daily Follow-up with primary care provider if symptoms not improved Proceed to the emergency room if symptoms worsen Patient Language: Unknown Prescriptions: New amoxicillin 875 mg tablet 875 mg PO Q12H 10 Days Qty: 20 0RF fluticasone propionate [Flonase Allergy Relief] 50 mcg/actuation spray,suspension 1 spray intranasal BID 7 Days Qty: 16 0RF Rx Instructions: administer into each nostril mupirocin [Centany] 2 % ointment 1 applic topical BID Qty: 15 0RF No Action albuterol sulfate 90 mcg/actuation HFA aerosol inhaler INHALATION Follow-up/Referrals: Chase,DO Garry [Primary Care Provider] - Time of Disposition: 11:22
== END 2024-11-05 11:30 | disposition home or self-care (01) ==
PROVIDERS: Emergency Provider Nurse Practitioner Family; PCP Student in an Organized Health Care Education/Training Program
DX: J01.10 Acute frontal sinusitis, unspecified (principal); J45.909 Unspecified asthma, uncomplicated
CPT/HCPCS: 99203; G0463